=== PATIENT | female | born 1950 | race African-American/Black ===

== ENCOUNTER 2020-01-29 16:36 | Inpatient (IN) | payer MEDICARE, MEDICAID, SELFPAY ==
[2020-01-29] VITALS (8 sets, daily range): BP systolic 168–190; BP diastolic 79–94; PULSE 54–84; RESP 16–28; TEMP 36.1–36.4; O2SAT 95–100
--- NOTE | ~2020-01-29 | CT_ITS ---
EXAMINATION: CT abdomen pelvis w con DATE: 01/29/2020 17:27 INDICATION: Lower abdominal pain TECHNIQUE: Computed tomography (CT) of the abdomen and pelvis was performed with 100 mL Omnipaque-350 intravenous contrast. Automated exposure control and iterative reconstruction technique were employe d. The dose-length product was 929.39 mGy-cm. COMPARISON: None FINDINGS: Mild atelectasis at the lung bases suggesting expiratory phase of imaging. Moderate cardiomegaly. No pericardial or pleural effusion. Liver, gallbladder, spleen, pancreas and bilateral adrenal glands an d kidneys are normal. Normal appendix. There are a few mildly dilated loops of small bowel in the yuridia tral pelvis measuring up to 3.7 cm in maximal diameter. Pseudofeces sign at a transition point in the central lower abdomen best appreciated on axial series 3, image 109. Colon is unremarkable. Bladder is normal. The uterus is not identified and has likely been surgically resected. Small amount of like ly reactive free fluid in the lower abdomen and pelvis. No abscess or free intraperitoneal gas. No pa thologically enlarged abdominal or pelvic lymphadenopathy. Mild lumbar spondylosis including mild dis c height loss and 3-4 mm anterolisthesis L4 on L5 with severe associated bilateral facet osteoarthrit is. 4.4 x 2.3 x 3.4 cm subcutaneous lipoma overlying the intercostal space between the lateral right 10th and 11th ribs. IMPRESSION: 1. Mild dilation of a few loops of small bowel with relative transition point in the pelvis consisten t with likely early or partial small bowel obstruction. Reviewed, dictated and finalized at location A. [facility] IMPRESSION: 1. Mild dilation of a few loops of small bowel with relative transition point i n the pelvis consistent with likely early or partial small bowel obstruction.
--- NOTE | ~2020-01-29 | XR_ITS ---
EXAMINATION: XR abdomen NG/feed tube insert DATE: 01/29/2020 18:49 INDICATION: Nasogastric tube placement TECHNIQUE: A supine view of the abdomen and lower chest was obtained for evaluation of feeding tube placement. COMPARISON: CT abdomen and pelvis dated 01/29/2020 FINDINGS: Nasogastric tube tip in proximal side port in the body of the stomach. No dilated loops of bowel in t he visualized abdomen. The pelvis is excluded from the [id number]. Moderate cardiomegaly. Median s ternotomy wires and mediastinal surgical clips are seen, likely from prior coronary artery bypass gra fting. Mild bibasilar atelectasis. Mild lumbar dextrocurvature. IMPRESSION: 1. Nasogastric tube in the stomach. 2. Cardiomegaly. Reviewed, dictated and finalized at location A. NE DENTIST
--- NOTE | ~2020-01-29 | XR_ITS ---
EXAMINATION: XR abdomen obstructive series DATE: 01/30/2020 05:45 INDICATION: Small bowel obstruction TECHNIQUE: Frontal supine and upright views of the abdomen were obtained. COMPARISON: 01/29/2020 FINDINGS: Nasogastric tube tip in the body of the stomach with proximal side-port at the gastroesophageal junct ion. Small amount of gas seen scattered throughout the transverse colon. No dilated loops of gas-fill ed bowel in the visualized mid to upper abdomen. Mild bibasilar atelectasis. Cardiomegaly. Median zuhair rnotomy wires and mediastinal surgical clips are seen, likely from prior coronary artery bypass graft ing. IMPRESSION: 1. Nasogastric tube in stomach. 2. Cardiomegaly. Reviewed, dictated and finalized at location A. ATURE SET CONSTRUCTOR
[2020-01-29 16:55] LABS: Basophils Percent Auto 0.6 % (0.2-1.2); Eosinophils Absolute Auto 0.2 K/mm3 (0-0.3); Eosinophils Percent Auto 2.6 % (0-4.4); Hematocrit 39.3 % (37.0-47.0); Hemoglobin 11.7 g/dL (12.0-15.0); Immature Granulocyte Absolute 0.01 K/mm3 (0.00-0.031); Immature Granulocyte Percent A 0.1 % (0-0.5); Lymphocytes Absolute Auto 2.06 K/mm3 (0.9-3.2); Lymphocytes Percent Auto 29.2 % (18.3-44.2); Mean Corpuscular HGB Conc 29.8 g/dl (32-36); Mean Corpuscular Hemoglobin 24.6 pg (26-34); Mean Corpuscular Volume 82.7 fl (80-100); Mean Platelet Volume 11.1 fl (7.4-10.4); Monocytes Absolute Auto 0.8 K/mm3 (0.1-0.6); Monocytes Percent Auto 10.6 % (2.6-8.5); Neutrophils Percent Auto 56.9 % (45.5-73.1); Platelet Count Result 261 k/mm3 (150-375); Red Blood Count 4.75 M/mm3 (4.2-5.4); Red Cell Distribution Width 16.1 % (11.5-14.5); White Blood Count 7.1 K/mm3 (4.5-10.0)
[2020-01-29 17:06] LABS: Alanine Aminotransferase 16 U/L (4-35); Albumin Level 3.9 g/dL (3.5-5.1); Alkaline Phosphatase 116 U/L (38-126); Anion Gap 4 mmol/L (8-16); Aspartate Amino Transferase 28 U/L (14-36); Bilirubin,Total 0.4 mg/dL (0.2-1.3); Blood Urea Nitrogen 13 mg/dL (7-17); Carbon Dioxide 31 mmol/L (22-30); Chloride 108 mmol/L (98-107); Estimated CRCL calculation 56 ml/min; Estimated Glomerular Filt Rate > 60; Glucose 102 mg/dL (65-105); Lipase 256 U/L (23-300); Potassium 3.6 mmol/L (3.4-5.0); Sodium 143 mmol/L (137-145)
[2020-01-29] MEDS: PANTOPRAZOLE SODIUM IV 40 MG VIAL IV PUSH (17:07)
[2020-01-29] MEDS: SODIUM CHLORIDE 0.9% IV 500 ML 999 ML IV CONT (17:08)
[2020-01-29] MEDS: ONDANSETRON INJ 4 MG/2 ML VIAL IV PUSH ×2 (17:08→18:46)
--- NOTE | 2020-01-29 17:21 | PC.NURSE ---
Pt to CT.
--- NOTE | 2020-01-29 17:28 | ED.GENADULT ---
HPI - General Adult General Chief complaint: Abdominal Pain <ASIF Bailey Last Filed: 01/29/20 20:12> Stated complaint: abd pain <ASIF Bailey Last Filed: 01/29/20 20:12> Time Seen by Provider: 01/29/20 16:54 <ASIF Bailey Last Filed: 01/29/20 20:12> Source: patient and family <ASIF Bailey Last Filed: 01/29/20 20:12> Mode of arrival: ambulatory <ASIF Bailey Last Filed: 01/29/20 20:12> Limitations: no limitations <ASIF Bailey Last Filed: 01/29/20 20:12> History of Present Illness HPI narrative: Patient is a 70-year-old female who presents to emergency department for evaluation of intermittent cramping abdominal pain patient notes that the pain seems to began after eating a [employer] today and has since a crampy belly pain that is sharp in nature intermittent and is coming and going she has not taken anything for her symptoms and denies similar occurrence in the past patient denies any fever chills nausea vomiting <ASIF Bailey Last Filed: 01/29/20 20:12> Related Data Home medications: Home Medications Medication Instructions Recorded Confirmed atorvastatin PO 01/29/20 furosemide PO 01/29/20 isosorbide mononitrate mg PO 01/29/20 lisinopril PO 01/29/20 pantoprazole PO 01/29/20 rivaroxaban [Xarelto] mg PO 01/29/20 tramadol mg 01/29/20 <ASIF Bailey Last Filed: 01/29/20 20:12> Allergies/adverse reactions: Allergies Allergy/AdvReac Type Severity Reaction Status Date / Time No Known Allergies Allergy Verified 01/29/20 16:41 <ASIF Bailey Last Filed: 01/29/20 20:12> Review of Systems Review of Systems: All systems reviewed & are unremarkable except as noted in HPI and below <ASIF Bailey Last Filed: 01/29/20 20:12> All systems reviewed & are unremarkable except as noted in HPI and below <Bertin Hill MD - Last Filed: 01/29/20 19:27> Constitutional: Constitutional: Denies body ache(s), Denies chills, Denies excessive sweating, Denies fatigue, Denies fever(s), Denies headache(s), Denies lethargy, Denies malaise, Denies weakness and Denies weight loss <Bertin Hill MD - Last Filed: 01/29/20 19:27> Eyes: Eyes: Denies blurry vision, Denies change in vision and Denies loss of vision <Bertin Hill MD - Last Filed: 01/29/20 19:27> ENT: Denies dizziness, Denies ear discharge, Denies headache(s), Denies lip swelling, Denies epistaxis, Denies nasal congestion, Denies neck pain, Denies throat swelling and Denies tongue swelling <Bertin Hill MD - Last Filed: 01/29/20 19:27> Cardiovascular: Cardiovascular: Denies chest pain, Denies chest pain at rest, Denies chest pain with activity, Denies diaphoresis, Denies rapid heart rate, Denies edema, Denies irregular heart rhythm, Denies lightheadedness, Denies palpitations, Denies dyspnea and Denies dyspnea on exertion <Bertin Hill MD - Last Filed: 01/29/20 19:27> Respiratory: Respiratory: Denies chest congestion, Denies cough, Denies hemoptysis, Denies dyspnea and Denies dyspnea on exertion <Bertin Hill MD - Last Filed: 01/29/20 19:27> Gastrointestinal: Gastrointestinal: Denies melena, Denies hematochezia, Denies diarrhea, Denies nausea, Denies vomiting and Denies hematemesis <Bertin Hill MD - Last Filed: 01/29/20 19:27> Musculoskeletal: Musculoskeletal: Denies abnormal gait, Denies deformity, Denies joint swelling, Denies limited range of motion, Denies neck pain and Denies numbness <Bertin Hill MD - Last Filed: 01/29/20 19:27> Neurologic: Denies Abnormal speech present, Denies abnormal gait, Denies confusion, Denies dizziness, Denies headache(s), Denies focal weakness, Denies loss of vision, Denies numbness, Denies Other visual disturbances, Denies Sensory deficit (Neuro) and Denies weakness <Bertin Hill MD - Last Filed: 01/29/20 19:27> Psych
[2020-01-29 18:39] LABS: Add Urine Microscopic? YES; Appearance Urine Clear (Clear); Bilirubin Urine Negative (Negative); Blood Urine Negative (Negative); Color Urine Yellow (Yellow); Glucose Urine UA Negative (Negative); Ketones Urine Negative (Negative); Leukocyte Esterase Ur Negative LEU/UL (Negative); Mucus Urine Rare /lpf; Nitrate Urine Negative (Negative); Protein Urine 1+ mg/dL (Negative); RBC Urine 0-2 /hpf (0-2); Squamous Epithelial Cell Urine Occasional /hpf (Few); Urobilinogen Urine Negative mg/dL (<2.0); WBC Urine 0-3 /hpf
--- NOTE | 2020-01-29 18:42 | PC.NURSE ---
Xray at bedside for NGT verification.
[2020-01-29 18:44] LABS: Specific Grav Ur 1.044 (1.001-1.035)
[2020-01-29] MEDS: LORazepam INJ (*CRX) 2 MG/ML VIAL 0.5 MG IV PUSH (18:47)
--- NOTE | 2020-01-29 18:54 | PC.NURSE ---
NGT placement verified by WESLY Gonzalez
--- NOTE | 2020-01-29 19:19 | PC.NURSE ---
Report given to VALERIANO Barrientos.
[2020-01-29] MEDS: LACTATED RINGERS 1,000 ML 125 ML IV CONT (23:47)
--- NOTE | 2020-01-29 23:51 | ADMGEN ---
This patient, Maria Guadalupe Jerez, was admitted to Medical Room 250-01. Patient/family oriented to hospital policies and general routines including ID bracelet, bed and alarms, visiting hours, pain management, procedures, bathroom and other care routines, personal items, smoking policy, room service/diet, and visiting hours. Information on how to activate the Rapid Response Team has been discussed. Patient/Family are encouraged to report perceived risks to care and to ask questions if they do not understand what they are told or what they should do.
[2020-01-30] VITALS: BP 168/79; PULSE 84; RESP 20; TEMP 36.1; O2SAT 100
[2020-01-30 04:00] VITALS: BP 151/83; PULSE 69; RESP 20; TEMP 36.1; O2SAT 100
[2020-01-30 05:41] LABS: Basophils Percent Auto 0.4 % (0.2-1.2); Eosinophils Absolute Auto 0.1 K/mm3 (0-0.3); Eosinophils Percent Auto 1.9 % (0-4.4); Hematocrit 38.3 % (37.0-47.0); Hemoglobin 11.7 g/dL (12.0-15.0); Immature Granulocyte Absolute 0.02 K/mm3 (0.00-0.031); Immature Granulocyte Percent A 0.3 % (0-0.5); Lymphocytes Absolute Auto 1.82 K/mm3 (0.9-3.2); Lymphocytes Percent Auto 26.4 % (18.3-44.2); Mean Corpuscular HGB Conc 30.5 g/dl (32-36); Mean Corpuscular Hemoglobin 24.4 pg (26-34); Mean Corpuscular Volume 79.8 fl (80-100); Mean Platelet Volume 11.5 fl (7.4-10.4); Monocytes Absolute Auto 0.8 K/mm3 (0.1-0.6); Monocytes Percent Auto 11.2 % (2.6-8.5); Neutrophils Absolute Auto 4.1 K/mm3 (1.3-6.7); Neutrophils Percent Auto 59.8 % (45.5-73.1); Platelet Count Result 261 k/mm3 (150-375); Red Cell Distribution Width 15.9 % (11.5-14.5); White Blood Count 6.9 K/mm3 (4.5-10.0)
[2020-01-30 05:54] LABS: Anion Gap 8 mmol/L (8-16); Blood Urea Nitrogen 10 mg/dL (7-17); Calcium 8.8 mg/dL (8.4-10.2); Carbon Dioxide 25 mmol/L (22-30); Chloride 107 mmol/L (98-107); Estimated CRCL calculation 62 ml/min; Estimated Glomerular Filt Rate > 60; Glucose 96 mg/dL (65-105); Potassium 3.5 mmol/L (3.4-5.0); Sodium 140 mmol/L (137-145)
[2020-01-30] MEDS: LACTATED RINGERS 1,000 ML 100 ML IV CONT (07:50)
[2020-01-30] MEDS: PANTOPRAZOLE SODIUM IV 40 MG VIAL IV PUSH (09:15)
--- NOTE | 2020-01-30 09:15 | PM.IMHP ---
H&P: HPI History of Present Illness Date/Time: 01/30/20 09:15 Chief complaint: Abdominal pain and nausea Narrative: Maria Guadalupe Jerez is a 70 year old female with history of CAD (s/p CABG 2002), perforated peptic ulcer (s/p repair in 2001), HTN, HLD, and a. fib (on alf a/c) who presented to the ER with complaints of abdominal pain and nausea that started yesterday. Patient states she was in her usual state of health when shortly after eating [employer], she began to develop sharp, intermittent abdominal pain that was midline from epigastric to suprapubic. She had associated severe nausea but did not vomit. She states her pain did not radiate. She thought a laxative would help so she decided to take lactulose yesterday but notes it did not take effect until this morning and confirms that she had two liquid bowel movements; nonbloody/non-melenic. While in the ED, CT abd/pelvis showed mild dilation of a few loops of small bowel with relative transition point in the pelvis consistent with likely early or partial small bowel obstruction. NGT was placed in the ED and was placed on NPO diet. General Surgery was consulted from the ED. Patient admitted under this setting. This morning, patient's main complaint is a sore throat from the NGT. She notes that her nausea and abdominal resolved after NGT was placed. She has no other complaints at this moment. Denies f/c/s, headaches, dizziness, lightheadedness, changes in v/h, cp/palpitations, sob/cough, dysuria, hematuria, cloudy urine, calf pain/swelling. Review of Systems Review of Systems: All systems reviewed & are unremarkable except as noted in HPI and below [facility] Past Medical History Medical History Arthritis Atrial fibrillation Chronic anticoagulation Coronary artery disease Hyperlipidemia Hypertension Perforated peptic ulcer Surgical History Surgical History H/O: hysterectomy History of abdominal surgery Perforated peptic ulcer repair in 2001. Incision from sternum to pubis History of coronary artery bypass graft History of lumpectomy History of neck surgery History of right inguinal hernia repair Family History Family History Father Colon cancer Mother Cerebrovascular accident Hypertension Social History Social History (Updated 01/30/20 @ 09:33 by Luis Angel Robins PA-C) Social History: Patient lives at home alone but has her boyfriend come in to check on her frequently. She wishes her son, Shant to be her surrogate MDM. She wishes to be a Full [employer]. Her PCP is Dr. Finley from [facility] Smoking status: Never smoker Alcohol intake: never Substance use: never Gender identity (if verbalized by the patient): Female Spiritual care concerns: No Meds Home Medications and Allergies Home Medications Medication Instructions Recorded Confirmed Type atorvastatin 20 mg PO HS 01/29/20 01/30/20 History furosemide 40 mg PO DAILY 01/29/20 01/30/20 History isosorbide mononitrate 60 mg PO BID 01/29/20 01/30/20 History lisinopril 10 mg PO DAILY 01/29/20 01/30/20 History pantoprazole 40 mg PO DAILY 01/29/20 01/30/20 History rivaroxaban [Xarelto] 20 mg PO DAILY 01/29/20 01/30/20 History tramadol 50 mg PO BID PRN 01/29/20 01/30/20 History tizanidine 4 mg PO BID PRN 01/30/20 01/30/20 History Allergies Allergy/AdvReac Type Severity Reaction Status Date / Time No Known Allergies Allergy Verified 01/30/20 06:45 Vital Signs Initial Vital Signs Temp Pulse Resp Pulse Ox 97.6 F 71 18 100 01/29/20 16:38 01/29/20 16:38 01/29/20 16:38 01/29/20 16:38 Last Vital Signs Temp 97 F L 01/30/20 04:00 Pulse 69 01/30/20 04:00 Resp 20 01/30/20 04:00 BP 151/83 H 01/30/20 04:00 Pulse Ox 100 01/30/20 04:00 Exam Narrative: Exam Narrative: Patient lying in semi-logan
[2020-01-30 10:00] VITALS: BP 145/92; PULSE 71; RESP 14; TEMP 36.3; O2SAT 100
--- NOTE | 2020-01-30 11:44 | PM.CNGS ---
Assessment and Plan Assessment and plan (1) Small bowel obstruction: Code(s): K56.609 - Unspecified intestinal obstruction, unspecified as to partial versus complete obstruction Status: Acute Assessment and Plan: CT scan suggests partial small bowel obstruction. I discussed CT findings with the patient. She has a significant history of abdominal surgeries. This is likely due to adhesions. The patient is already clinically improving and now moving her bowels. Her abdominal exam is benign. It seems that this has already started to resolve prior to my exam. NG tube in place and patient NPO. We will try to remove the NG tube and start advancing her diet. Continue with conservative management. No indication for surgery at this time. Thank you for allowing us to see the patient in consultation. We will continue to follow along. (2) History of abdominal surgery: Code(s): Z98.890 - Other specified postprocedural states Status: Inactive (3) Atrial fibrillation: Code(s): I48.91 - Unspecified atrial fibrillation Status: Acute (4) Chronic anticoagulation: Code(s): Z79.01 - care home (current) use of anticoagulants Status: Acute Assessment and Plan: Xarelto on hold. Okay to resume once tolerating a substantial diet. (5) Hypertension: Code(s): I10 - Essential (primary) hypertension Status: Acute (6) Coronary artery disease: Code(s): I25.10 - Atherosclerotic heart disease of [place] coronary artery without angina pectoris Status: Acute Additional Plan Discussed the patient's case and plan of care with Dr. Urena. History of Present Illness Consult details Consult date: 01/30/20 Reason for consult: other (Partial small bowel obstruction) Requesting physician: Sajan Montana PA-C Narrative: This is a 70-year-old female with a history of coronary artery disease, atrial fibrillation on chronic anticoagulation, hypertension, and history of peptic ulcer disease with peptic ulcer perforation with subsequent exploratory laparotomy. She presented to the emergency department yesterday with complaints of abdominal pain, bloating and nausea. She reports having a sudden onset of severe cramping abdominal pain in the afternoon. She reports associated nausea and bloating, but no vomiting. She had a bowel movement earlier that morning with breakfast, but tried to take lactulose after the pain onset, which gave no relief. The pain was unrelenting, therefore she went to [facility] ER. Due to the length of the wait for evaluation, she decided to go to [place] ER for evaluation. CT scan of the abdomen and pelvis showed mild dilation of a few loops of small bowel with relative transition point in the pelvis consistent with likely early or partial small bowel obstruction. The patient was admitted and our service was consulted from the emergency department provider for the partial small bowel obstruction. NG tube was placed and put to low intermittent suction. KUB this morning confirmed placement of the NG tube and showed no dilated loops of small bowel. The patient is now being seen on the medical floor. She denies any current abdominal pain, nausea, or vomiting. She reports flatus this morning and 2 BMs since admission. No other complaints at this time. Review of Systems Constitutional: Constitutional: Reports as per HPI, Denies chills, Denies excessive sweating, Denies fatigue, Denies fever(s), Denies headache(s) and Denies weakness Eyes: Eyes: Denies change in vision and Denies loss of vision ENT: Reports Normal hearing present, Denies dizziness and Denies headache(s) Cardiovascular: Cardiovascular: Denies chest pain, Denies syncope, Denies leg edema, Denies lightheadedness, Denies radiating jaw, neck or arm pain and Denies dyspnea Respiratory: Respiratory: Denies cough, Denies dyspnea and Denies wheezing Gastrointestinal: Gastrointestinal: Reports as per HPI, Reports a
[2020-01-30] MEDS: hydrALAZINE HCL 20 MG/ML VIAL 10 MG IV PUSH (11:45)
[2020-01-30 12:00] VITALS: BP 124/76; PULSE 80; RESP 14; TEMP 36.3; O2SAT 100
[2020-01-30 18:00] VITALS: BP 120/75; PULSE 71; RESP 14; TEMP 36.2; O2SAT 100
[2020-01-30 22:00] VITALS: BP 147/89; PULSE 85; RESP 20; TEMP 36.8; O2SAT 99
[2020-01-30] MEDS: LACTATED RINGERS 1,000 ML 50 ML IV CONT (22:07)
[2020-01-30] MEDS: traMADol HCL (*CRX) 50 MG TABLET PO (22:08)
[2020-01-30] MEDS: ISOSORBIDE MONONITRATE 60 MG TAB.ER.24H PO (22:12)
[2020-01-30] MEDS: ATORVASTATIN 20 MG TABLET PO (22:13)
[2020-01-31 02:00] VITALS: BP 142/88; PULSE 85; RESP 21; TEMP 36.2; O2SAT 100
[2020-01-31 05:38] LABS: Hematocrit 34.5 % (37.0-47.0); Hemoglobin 10.7 g/dL (12.0-15.0); Mean Corpuscular Volume 80.6 fl (80-100); Mean Platelet Volume 11.6 fl (7.4-10.4); Platelet Count Result 239 k/mm3 (150-375); Red Blood Count 4.28 M/mm3 (4.2-5.4); Red Cell Distribution Width 15.9 % (11.5-14.5); White Blood Count 6.3 K/mm3 (4.5-10.0)
[2020-01-31 05:57] LABS: Anion Gap 4 mmol/L (8-16); Blood Urea Nitrogen 8 mg/dL (7-17); Calcium 8.3 mg/dL (8.4-10.2); Carbon Dioxide 31 mmol/L (22-30); Chloride 103 mmol/L (98-107); Estimated CRCL calculation 62 ml/min; Estimated Glomerular Filt Rate > 60; Glucose 90 mg/dL (65-105); Magnesium 1.7 mg/dL (1.6-2.3); Sodium 138 mmol/L (137-145)
[2020-01-31 06:00] VITALS: BP 148/70; PULSE 94; RESP 21; TEMP 36.7; O2SAT 100
[2020-01-31] MEDS: traMADol HCL (*CRX) 50 MG TABLET PO (07:40)
[2020-01-31] MEDS: FUROSEMIDE 40 MG TABLET PO (07:41)
[2020-01-31] MEDS: ISOSORBIDE MONONITRATE 60 MG TAB.ER.24H PO (07:41)
[2020-01-31] MEDS: PANTOPRAZOLE 40 MG TABLET PO (07:41)
[2020-01-31 10:00] VITALS: BP 152/77; PULSE 76; RESP 16; TEMP 36.7; O2SAT 99
--- NOTE | 2020-01-31 10:52 | PM.DS ---
DS: Admitting Diagnosis Admitting Diagnosis Admitting Diagnosis: Abdominal pain and nausea DS: Discharge Diagnosis Discharge Diagnosis (1) Small bowel obstruction: Code(s): K56.609 - Unspecified intestinal obstruction, unspecified as to partial versus complete obstruction Status: Acute Assessment and Plan: CT findings suggestive of mild partial SBO. S/S consistent as well. Appears to be resolving as symptoms have improved and XR this morning yesterday showed no signs of dilated loops of bowel and patient states she had return of bowel function with 2 BMs yesterday. General Surgery consulted from the ED and appreciate input - ok'd patient discharge to home this afternoon. NGT removed earlier, advancing diet as tolerated. Monitor closely Resumed home meds as tolerating diet (2) Atrial fibrillation: Code(s): I48.91 - Unspecified atrial fibrillation Status: Acute Assessment and Plan: Patient is rate controlled , HR 80s and regular to auscultation. on Xarelto chronically. resuming at discharge. Normal rate today. Resumed Xarelto as diet intake has returned to regular diet and consistency (3) Chronic anticoagulation: Code(s): Z79.01 - senior care (current) use of anticoagulants Status: Acute Assessment and Plan: On Xarelto for A. Fib. No evidence of acute blood loss Resumed as tolerating a substantial diet. (4) Coronary artery disease: Code(s): I25.10 - Atherosclerotic heart disease of [place] coronary artery without angina pectoris Status: Acute Assessment and Plan: No acute issues at this moment Resume home meds when appropriate (5) Hypertension: Code(s): I10 - Essential (primary) hypertension Status: Acute Assessment and Plan: BP stable today. BP 140s sys this morning PRN hydralazine with parameters ordered while NPO Resumed home medications at discharge. (6) Hyperlipidemia: Code(s): E78.5 - Hyperlipidemia, unspecified Status: Inactive Assessment and Plan: LFTs WNL Resumed atorvastatin at discharge. (7) History of abdominal surgery: Code(s): Z98.890 - Other specified postprocedural states Status: Inactive Assessment and Plan: significant history of abdominal surgeries. SBO is likely due to adhesions. Continue with conservative management. No indication for surgery at this time. DS: Summary Time Spent with Patient Time attestation: Total time spent providing and/or coordinating discharge services:90 minutes Exam Narrative: Exam Narrative: Patient lying in bed at time of visit. Const: General: cooperative, healthy appearing, comfortable, no acute distress, well developed, alert and awake; No confusion Nutritional Appearance: well nourished and overweight Orientation/consciousness: oriented to person, oriented to place, oriented to time, patient oriented x3 and No confusion Limitations: no limitations HENMT: Head: normal to inspection, normocephalic and atraumatic Ears: hearing grossly normal bilaterally, external ears normal, TM normal on the right and TM normal on the left General nose exam: Normal external nose present, Normal nares present (NGT noted in right nostril) and No nasal discharge present Face and sinus: normal facial exam and face symmetric Mouth: Yes Normal oral and palatal mucosa present, Yes lip normal, Yes tongue normal, Yes oropharynx normal and Yes moist mucous membranes Throat: posterior oropharynx normal, tonsils normal and uvula midline Eyes: General: appearance normal, both eyes and all related structures Sclera: sclerae normal Pupils: Equal, round and reactive pupils present EOM: EOMs intact bilaterally Neck: Neck: normal visual inspection, full ROM, no lymphadenopathy, no meningeal signs, trachea midline and supple Chest: Chest palpation & inspection: normal inspection of the chest Resp: Effort & Inspection: normal respiratory ef
[2020-01-31] MEDS: POTASSIUM CHLORIDE 20 MEQ TABLET PO (10:59)
[2020-01-31] MEDS: POTASSIUM CHLORIDE 20 MEQ TABLET.ER PO (11:00)
--- NOTE | 2020-01-31 11:30 | PM.PNGS ---
Progress Note: A&P Assessment and Plan (1) Small bowel obstruction: Code(s): K56.609 - Unspecified intestinal obstruction, unspecified as to partial versus complete obstruction Status: Acute Assessment and Plan: doing well, +bowel fxn, ADAT, no acute surgical issues, will sign off, call c ?s, issues Subjective Subjective Date/Time Seen: 01/31/20 11:30 doing well, roxana clears, multiple BMs Review of Systems Constitutional: Constitutional: Denies anorexia, Denies chills, Denies fatigue and Denies fever(s) Cardiovascular: Cardiovascular: Reports no additional cardiovascular complaints Respiratory: Respiratory: Reports no additional respiratory complaints Gastrointestinal: Gastrointestinal: Reports no additional gastrointestinal complaints Exam Const: General: cooperative, comfortable and no acute distress Resp: Effort & Inspection: normal respiratory effort Auscultation: clear to auscultation bilaterally Cardio: Rate: regular rate Rhythm: regular rhythm GI: Inspection: normal to inspection and non-distended GI Palp: Yes Soft to palpation and No Tenderness to palpation present (GI) Other: soft, sl dist, NT Objective Data Vital Signs Vital Signs: Vital Signs - 24 hr 01/30/20 12:00 01/30/20 18:00 01/30/20 22:00 Temperature 36.3 C L 36.2 C L 36.8 C Pulse Rate 80 71 85 Respiratory Rate 14 14 20 Blood Pressure 124/76 120/75 147/89 H Pulse Oximetry 100 100 99 01/31/20 02:00 01/31/20 06:00 01/31/20 10:00 Temperature 36.2 C L 36.7 C 36.7 C Pulse Rate 85 94 76 Respiratory Rate 21 H 21 H 16 Blood Pressure 142/88 H 148/70 H 152/77 H Pulse Oximetry 100 100 99 Intake/Output Intake/Output: Intake & Output 01/28/20 01/29/20 01/30/20 01/31/20 23:59 23:59 23:59 23:59 Intake Total 600 2770 1590 Output Total 1000 Balance 600 2770 590 Meds/Results Medications: Active Medications Generic Name Dose Route Start Last Admin Trade Name Freq PRN Reason Stop Dose Admin Acetaminophen 1,000 mg 01/31/20 10:36 Acetaminophen 500 Mg Tablet PO Q6H PRN Pain or Fever Atorvastatin Calcium 20 mg 01/30/20 21:00 01/30/20 22:13 Atorvastatin 20 Mg Tablet PO 20 mg HS BETH Administration Docusate Sodium 100 mg 01/31/20 21:00 Docusate Sodium 100 Mg Capsule PO Q12HR BETH Furosemide 40 mg 01/31/20 09:00 01/31/20 07:41 Furosemide 40 Mg Tablet PO 40 mg DAILY BETH Administration Hydralazine HCl 10 mg 01/30/20 07:16 01/30/20 11:45 Hydralazine Hcl 20 Mg/Ml Vial IV PUSH 10 mg Q8H PRN Administration Blood Pressure - High Isosorbide Mononitrate 60 mg 01/30/20 21:00 01/31/20 07:41 Isosorbide Mononitrate 60 Mg Tab.Er.24h PO 60 mg Q12HR BETH Administration Lisinopril 10 mg 01/31/20 09:00 01/31/20 08:06 Lisinopril 10 Mg Tablet PO Not Given DAILY BETH Ondansetron HCl 4 mg 01/29/20 20:12 Ondansetron Inj 4 Mg/2 Ml Vial IV PUSH Q4H PRN Nausea Pantoprazole Sodium 40 mg 01/31/20 09:00 01/31/20 07:41 Pantoprazole 40 Mg Tablet PO 40 mg DAILY [facility] Administration Potassium Chloride 20 meq 01/31/20 10:40 01/31/20 11:00 Potassium Chloride 20 Meq Tablet.Er PO 20 meq BID BETH Administration Psyllium Hydrophilic Mucilloid 1 packet 02/01/20 09:00 Psyllium Powder Packet PO QAM [facility] Rivaroxaban 20 mg 02/01/20 09:00 Rivaroxaban 20 Mg Tablet PO DAILY [facility] Tizanidine HCl 4 mg 01/30/20 15:49 Tizanidine Hcl 4 Mg Tablet PO BID PRN Muscle Spasm Tramadol HCl 50 mg 01/30/20 15:49 01/31/20 07:40 Tramadol Hcl (*Crx) 50 Mg Tablet PO 50 mg BID PRN Administration PAIN RATED 4-6 Radiology Results: ITS Impressions Abdomen/Pelvis CT 01/29/20 17:31 IMPRESSION: 1. Mild dilation of a few loops of small bowel with relative transition point in the pelvis consistent with likely early or partial small bowel obstruction. Abdomen X-Ray 01/30/20 07:50 IMPRESSI
[2020-01-31 14:00] VITALS: BP 146/73; PULSE 68; RESP 16; TEMP 36.6; O2SAT 99
[2020-01-31 14:48] LABS: Anion Gap 6 mmol/L (8-16); Blood Urea Nitrogen 9 mg/dL (7-17); Calcium 8.3 mg/dL (8.4-10.2); Carbon Dioxide 30 mmol/L (22-30); Chloride 104 mmol/L (98-107); Estimated CRCL calculation 51 ml/min; Estimated Glomerular Filt Rate > 60; Glucose 82 mg/dL (65-105); Magnesium 1.7 mg/dL (1.6-2.3); Potassium 3.5 mmol/L (3.4-5.0); Sodium 140 mmol/L (137-145)
== END 2020-01-31 16:25 | disposition home or self-care (01) | DRG 390 ==
LOC: ANHED 20:17 → ANH3MEDSUR 20:43 → ANH2MED 21:43
PROVIDERS: Emergency Medicine Emergency Medical Services; Physician Assistant; Admitting Provider Family Medicine; Emergency Provider Emergency Medicine; PCP Internal Medicine; Visit Provider Nurse Practitioner
DX: K56.50 Intestinal adhesions [bands], unspecified as to partial versus complete obstruction (principal); E78.5 Hyperlipidemia, unspecified; I48.91 Unspecified atrial fibrillation; I25.10 Atherosclerotic heart disease of native coronary artery without angina pectoris; I10 Essential (primary) hypertension; Z79.01 Long term (current) use of anticoagulants; Z87.11 Personal history of peptic ulcer disease; Z98.890 Other specified postprocedural states
CPT/HCPCS: 36415; 74019; 74177; 80048; 80053; 81001; 83690; 83735; 84443; 85025; 85027; 96361; 96365; 96375; 96376; 97110; 97161; 97165; 99285; A9270; C9113; G0378; J0131; J0360; J2060; J2405; J7040; J7120; Q9967

== ENCOUNTER 2020-11-12 03:38 | Emergency (ER) | payer MEDICARE, MEDICAID, SELFPAY ==
[2020-11-12] VITALS (11 sets, daily range): BP systolic 157–201; BP diastolic 77–120; PULSE 74–108; RESP 14–21; TEMP 36.7; O2SAT 96–100
--- NOTE | ~2020-11-12 | XR_ITS ---
EXAMINATION: XR chest 1V portable DATE: 11/12/2020 04:43 INDICATION: Shortness of breath. COVID-19 positive on 11/05/20. TECHNIQUE: A single frontal view of the chest was obtained. COMPARISON: Chest CT 11/12/2020 FINDINGS: There are patchy airspace opacities in right mid and lower lung zones and left lower lung z one. No pleural effusion or pneumothorax. Cardiomegaly is noted. Median sternotomy wires and mediasti nal surgical clips are seen, likely from prior coronary artery bypass grafting. IMPRESSION: 1. Patchy airspace opacities in right mid and lower lung zones and left lower lung zone, consistent w ith COVID-19 pneumonia. 2. Cardiomegaly. Reviewed, dictated and finalized at location A. IMPRESSION: 1. Patchy airspace opacities in right mid and lower lung zones and left lower l stefano zone, consistent with COVID-19 pneumonia. 2. Cardiomegaly.
--- NOTE | ~2020-11-12 | CT_ITS ---
EXAMINATION: CTA chest PE protocol DATE: 11/12/2020 06:26 INDICATION: Shortness of breath. COVID-19 pneumonia. TECHNIQUE: Computed tomography angiography (CTA) of the chest was performed with 100 mL Omnipaque-350 intravenous contrast timed to evaluate the pulmonary arteries. Coronal maximum intensity projection 3D-reconstructions were created by the technologist. Automated exposure control and iterative reconst ruction technique were employed. The dose-length product was 657.76 mGy-cm. COMPARISON: CT abdomen and pelvis 01/29/2020, chest single view 11/12/2020 FINDINGS: There are patchy groundglass opacities and crazy paving in all lobes. There are patchy airs pace opacities in the lower lobes and right middle lobe. A calcified right lung nodule is consistent with old granulomatous disease. No pleural effusion. Cardiomegaly is noted. There are coronary artery calcifications. There are changes of coronary artery bypass grafting. No pericardial effusion. There is no pulmonary embolus. There is mild thoracic spondylosis. IMPRESSION: 1. No pulmonary embolus. Sensitivity is moderately decreased by motion artifact. 2. Diffuse lung disease with a lower lung predominance, consistent with COVID-19 pneumonia. 3. Cardiomegaly. Reviewed, dictated and finalized at location A. IMPRESSION: 1. No pulmonary embolus. Sensitivity is moderately decreased by motion artifact . 2. Diffuse lung disease with a lower lung predominance, consistent with COVID-1 9 pneumonia. 3. Cardiomegaly.
--- NOTE | 2020-11-12 04:23 | ECG_ITS ---
Measurements Intervals [place] Rate: 81 P: MT: 0 QRS: 9 QRSD: 102 T: -20 QT: 385 QTc: 449 Interpretive Statements ATRIAL FIBRILLATION DELAYED PRECORDIAL R/S TRANSITION BORDERLINE T WAVE ABNORMALITY- INFERIOR LEADS BASELINE ARTIFACT- V6 ABNORMAL ECG Electronically Signed On 11-12-2020 6:05:11 CDT by Graeme Pavon D.O.
--- NOTE | 2020-11-12 04:38 | ED.GENADULT ---
HPI - General Adult General Chief complaint: Unspecified Stated complaint: covid-19 positive, can't sleep Time Seen by Provider: 11/12/20 04:10 History of Present Illness HPI narrative: Patient is a 70-year-old female who presents the emergency department with chief complaint of shortness of breath. The patient reports she was diagnosed with COVID-19 on the 13th reports she has had symptoms for about a week patient states that tonight she was feeling short of breath as though she could not get a good deep breath and reports that she could not sleep. The patient states that she has had a cough that is been productive reports symptoms are not improved by anything nor they worsened by any thing the patient states she is not had any chest pain with this. Related Data Home Medications Medication Instructions Recorded Confirmed Xarelto 20 mg PO DAILY 01/29/20 01/30/20 atorvastatin 20 mg PO HS 01/29/20 01/30/20 furosemide 40 mg PO DAILY 01/29/20 01/30/20 isosorbide mononitrate 60 mg PO BID 01/29/20 01/30/20 lisinopril 10 mg PO HS 01/29/20 01/31/20 pantoprazole 40 mg PO DAILY 01/29/20 01/30/20 tramadol 50 mg PO BID PRN 01/29/20 01/30/20 tizanidine 4 mg PO BID PRN 01/30/20 01/30/20 potassium chloride 20 meq PO QAM AND QPM 01/31/20 01/31/20 Allergies Allergy/AdvReac Type Severity Reaction Status Date / Time No Known Allergies Allergy Verified 11/12/20 04:21 Review of Systems Review of Systems: A 10 system review of systems was completed on the patient and is negative except for what is stated in the HPI. Nursing and ancillary documentation was reviewed. [facility] Past Medical History Medical History Arthritis Atrial fibrillation Chronic anticoagulation Coronary artery disease Hyperlipidemia Hypertension Perforated peptic ulcer Surgical History Surgical History H/O: hysterectomy vaginal partial hysterectomy History of abdominal surgery Exploratory laparotomy for perforated peptic ulcer repair in 2001. History of coronary artery bypass graft History of lumpectomy History of neck surgery History of right inguinal hernia repair Family History Family History Father Colon cancer Mother Cerebrovascular accident Hypertension Social History Social History Social History: Patient lives at home alone but has her boyfriend comes in to check on her frequently. She wishes her son, Shant to be her surrogate MDM. She wishes to be a Full Code. Her PCP is Dr. Finley from [facility] Smoking status: Never smoker Alcohol intake: never Substance use: never Gender identity (if verbalized by the patient): Female Spiritual care concerns: No Exam Narrative: GENERAL: Well-appearing, well-nourished, and in no acute distress. HEAD: Normocephalic, atraumatic. EYES: PERRLA and EOMI. ENT: Nares clear, no rhinorrhea or epistaxis. Mucous membranes moist. NECK: Supple. CHEST: Clear to auscultation. No respiratory distress. HEART: Regular rate and rhythm. No murmur heard. Normal peripheral pulses. ABDOMEN: Soft, nontender, nondistended, normal active bowel sounds. EXTREMITIES: Normal range of motion. No edema. SKIN: Warm, dry, no rash. NEURO: No focal deficits. Alert and oriented x3. PSYCH: Normal mood and affect. Course Course Emergency Course: The patient had a mildly elevated troponin given her COVID-19 status plan was to admit the patient for observation. The patient states he has a court case coming up tomorrow and cannot stay in the hospital the patient has chosen to leave AGAINST MEDICAL ADVICE Vital Signs Vital signs: Vital Signs Temperature 36.7 C 11/12/20 03:44 Pulse Rate 108 H 11/12/20 03:44 Respiratory Rate 14 11/12/20 03:44 Blood Pressure
[2020-11-12] MEDS: ALBUTEROL SULFATE (*SP) INHALER 2 PUFF INHALATION (04:39)
[2020-11-12] MEDS: SODIUM CHLORIDE 0.9% IV 1,000 ML 999 ML IV CONT (04:43)
[2020-11-12] MEDS: ONDANSETRON INJ 4 MG/2 ML VIAL IV PUSH (04:43)
[2020-11-12 04:50] LABS: Hematocrit 41.5 % (37.0-47.0); Hemoglobin 12.7 g/dL (12.0-15.0); Immature Granulocyte Absolute 0.02 K/mm3 (0.00-0.031); Immature Granulocyte Percent A 0.6 % (0-0.5); Lymphocytes Absolute Auto 0.81 K/mm3 (0.9-3.2); Lymphocytes Percent Auto 22.6 % (18.3-44.2); Mean Corpuscular HGB Conc 30.6 g/dl (32-36); Mean Corpuscular Volume 81.5 fl (80-100); Mean Platelet Volume 11.9 fl (7.4-10.4); Monocytes Absolute Auto 0.4 K/mm3 (0.1-0.6); Monocytes Percent Auto 10.6 % (2.6-8.5); Neutrophils Absolute Auto 2.4 K/mm3 (1.3-6.7); Neutrophils Percent Auto 66.2 % (45.5-73.1); Platelet Count Result 162 k/mm3 (150-375); Red Blood Count 5.09 M/mm3 (4.2-5.4); Red Cell Distribution Width 15.9 % (11.5-14.5); White Blood Count 3.6 K/mm3 (4.5-10.0)
[2020-11-12 05:01] LABS: INR 1.3; Prothrombin Time 16.1 Seconds (11.1-14.7)
[2020-11-12 05:02] LABS: Partial Thromboplastin Time 42.2 SECONDS (22.3-36.8)
[2020-11-12 05:05] LABS: Alanine Aminotransferase 69 U/L (4-35); Alkaline Phosphatase 101 U/L (38-126); Anion Gap 10 mmol/L (8-16); Aspartate Amino Transferase 149 U/L (14-36); Bilirubin,Total 0.5 mg/dL (0.2-1.3); Blood Urea Nitrogen 6 mg/dL (7-17); Calcium 8.2 mg/dL (8.4-10.2); Carbon Dioxide 27 mmol/L (22-30); Chloride 100 mmol/L (98-107); Estimated CRCL calculation 64 ml/min; Estimated Glomerular Filt Rate > 60; Glucose 117 mg/dL (65-110); Potassium 3.8 mmol/L (3.4-5.0); Sodium 137 mmol/L (137-145)
[2020-11-12 05:19] LABS: NT Pro B Type Natriuretic Pept 1200 pg/mL (5-100)
--- NOTE | 2020-11-12 05:45 | PC.NURSE ---
Patient taken to CT.
--- NOTE | 2020-11-12 06:38 | PC.NURSE ---
Patient ambulated to the bathroom and back to her room with a steady gait. Patient states she is feeling much better.
== END 2020-11-12 07:20 | disposition left against medical advice (07) ==
PROVIDERS: Emergency Provider Emergency Medicine; PCP Internal Medicine
DX: U07.1 COVID-19 (principal); R79.89 Other specified abnormal findings of blood chemistry; I48.91 Unspecified atrial fibrillation; I25.10 Atherosclerotic heart disease of native coronary artery without angina pectoris; E78.5 Hyperlipidemia, unspecified; I10 Essential (primary) hypertension; M19.90 Unspecified osteoarthritis, unspecified site; Z79.01 Long term (current) use of anticoagulants; Z95.1 Presence of aortocoronary bypass graft; R94.31 Abnormal electrocardiogram [ECG] [EKG]
CPT/HCPCS: 36415; 71045; 71275; 80053; 83880; 84484; 85025; 85610; 85730; 93005; 96361; 96374; 99284; A9270; J2405; J7030; Q9967

== ENCOUNTER 2020-11-13 13:50 | Emergency (ER) | payer MEDICARE, MEDICAID, SELFPAY ==
--- NOTE | ~2020-11-13 | XR_ITS ---
EXAMINATION: XR chest 2V EXAM DATE: 11/13/2020 14:19 INDICATION: COVID positive. Cough. TECHNIQUE: Frontal and lateral projections of the chest obtained and reviewed. Comparison is made to prior examination from 11/12/2020. FINDINGS: There is cardiomegaly. Bilateral mid and lower lung zone ill-defined airspace disease, cou ld be COVID pneumonia given history. Other acute infectious process or edema can look identical. No p neumothorax or pleural effusion. Sternotomy wires are present without findings to suggest sternal deh iscence. Cervical fusion markers. There is no pneumothorax suspected. There are no pleural effusions. Accounting for differences in technique, there is no significant interval change. IMPRESSION: 1. Ill-defined bilateral infection or edema. 2. Cardiomegaly. Reviewed, dictated and finalized at location B.
[2020-11-13 13:54] VITALS: BP 174/98; PULSE 89; RESP 18; TEMP 37; O2SAT 99
--- NOTE | 2020-11-13 13:59 | ECG_ITS ---
Measurements Intervals [place] Rate: 80 P: FL: 0 QRS: 16 QRSD: 98 T: -15 QT: 380 QTc: 440 Interpretive Statements ATRIAL FIBRILLATION CANNOT RULE OUT SEPTAL INFARCT, AGE INDETERMINATE BORDERLINE T WAVE ABNORMALITY- INFERIOR LEADS BASELINE ARTIFACT- I, II, III, AVR, AVL, AVF, V1-V6 ABNORMAL ECG Electronically Signed On 11-13-2020 20:22:24 CDT by Graeme Pavon D.O.
[2020-11-13 18:30] VITALS: TEMP 38.4
[2020-11-13 18:36] VITALS: BP 160/92; PULSE 80; RESP 20; TEMP 37.8; O2SAT 95
[2020-11-13] MEDS: ALBUTEROL SULFATE (*SP) INHALER 2 PUFF INHALATION (18:58)
[2020-11-13 19:04] LABS: Hematocrit 41.4 % (37.0-47.0); Hemoglobin 12.6 g/dL (12.0-15.0); Immature Granulocyte Absolute 0.02 K/mm3 (0.00-0.031); Immature Granulocyte Percent A 0.5 % (0-0.5); Lymphocytes Absolute Auto 0.96 K/mm3 (0.9-3.2); Lymphocytes Percent Auto 24.3 % (18.3-44.2); Mean Corpuscular HGB Conc 30.4 g/dl (32-36); Mean Corpuscular Volume 82.3 fl (80-100); Mean Platelet Volume 11.7 fl (7.4-10.4); Monocytes Absolute Auto 0.4 K/mm3 (0.1-0.6); Monocytes Percent Auto 9.6 % (2.6-8.5); Neutrophils Absolute Auto 2.6 K/mm3 (1.3-6.7); Neutrophils Percent Auto 65.6 % (45.5-73.1); Platelet Count Result 172 k/mm3 (150-375); Red Blood Count 5.03 M/mm3 (4.2-5.4); Red Cell Distribution Width 15.9 % (11.5-14.5)
[2020-11-13] MEDS: BENZONATATE 100 MG CAPSULE 200 MG PO (19:17)
[2020-11-13 19:18] LABS: Anion Gap 10 mmol/L (8-16); Blood Urea Nitrogen 7 mg/dL (7-17); Calcium 8.2 mg/dL (8.4-10.2); Carbon Dioxide 27 mmol/L (22-30); Chloride 100 mmol/L (98-107); Estimated CRCL calculation 58 ml/min; Estimated Glomerular Filt Rate > 60; Glucose 84 mg/dL (65-110); Lactic Acid Reflex 0.9 mmol/L (0.7-2.1); Potassium 4.3 mmol/L (3.4-5.0); Sodium 137 mmol/L (137-145)
[2020-11-13] MEDS: SODIUM CHLORIDE 0.9% IV 1,000 ML 999 ML IV CONT (19:18)
[2020-11-13 19:40] LABS: NT Pro B Type Natriuretic Pept 2280 pg/mL (5-100); Troponin I 0.042 ng/mL (0.000-0.034)
[2020-11-13 19:41] LABS: Hypochromasia 1+ (NORMAL); Platelet Estimate Adequate (Adequate)
[2020-11-13 19:42] LABS: Anisocytosis 2+ (NORMAL)
--- NOTE | 2020-11-13 19:49 | ED.GENADULT ---
HPI - General Adult General Chief complaint: Recheck/Abnormal Lab/Rx Stated complaint: COVID/Pneumonia Time Seen by Provider: 11/13/20 18:27 History of Present Illness HPI narrative: Patient is a 70-year-old female presents the emergency department with chief complaint of Covid pneumonia. Patient was seen in the emergency department the other morning where she is a known Covid positive patient and has been having some shortness of breath. The patient was found to have a elevated troponin at that time and the plan was originally to admit the patient for observation. The patient at that time stated that she had a court case that she had to go to and did not want to stay in the hospital the patient signed out AGAINST MEDICAL ADVICE and went home the patient states she is continued to have shortness of breath and her symptoms have not improved and she did not make a court. The patient states that her primary care doctor spoke to her and recommended that she return to the emergency department for admission Related Data Home Medications Medication Instructions Recorded Confirmed Xarelto 20 mg PO DAILY 01/29/20 01/30/20 atorvastatin 20 mg PO HS 01/29/20 01/30/20 furosemide 40 mg PO DAILY 01/29/20 01/30/20 isosorbide mononitrate 60 mg PO BID 01/29/20 01/30/20 lisinopril 10 mg PO HS 01/29/20 01/31/20 pantoprazole 40 mg PO DAILY 01/29/20 01/30/20 tramadol 50 mg PO BID PRN 01/29/20 01/30/20 tizanidine 4 mg PO BID PRN 01/30/20 01/30/20 potassium chloride 20 meq PO QAM AND QPM 01/31/20 01/31/20 Allergies Allergy/AdvReac Type Severity Reaction Status Date / Time No Known Allergies Allergy Verified 11/12/20 04:21 Review of Systems Review of Systems: A 10 system review of systems was completed on the patient and is negative except for what is stated in the HPI. Nursing and ancillary documentation was reviewed. [facility] Past Medical History Medical History Arthritis Atrial fibrillation Chronic anticoagulation Coronary artery disease Hyperlipidemia Hypertension Perforated peptic ulcer Surgical History Surgical History H/O: hysterectomy vaginal partial hysterectomy History of abdominal surgery Exploratory laparotomy for perforated peptic ulcer repair in 2001. History of coronary artery bypass graft History of lumpectomy History of neck surgery History of right inguinal hernia repair Family History Family History Father Colon cancer Mother Cerebrovascular accident Hypertension Social History Social History Social History: Patient lives at home alone but has her boyfriend comes in to check on her frequently. She wishes her son, Shant to be her surrogate MDM. She wishes to be a Full Code. Her PCP is Dr. Finley from [facility] Smoking status: Never smoker Alcohol intake: never Substance use: never Gender identity (if verbalized by the patient): Female Spiritual care concerns: No Exam Narrative: GENERAL: Well-appearing, well-nourished, and in no acute distress. HEAD: Normocephalic, atraumatic. EYES: PERRLA and EOMI. ENT: Nares clear, no rhinorrhea or epistaxis. Mucous membranes moist. NECK: Supple. CHEST: Clear to auscultation. No respiratory distress. HEART: Regular rate and rhythm. No murmur heard. Normal peripheral pulses. ABDOMEN: Soft, nontender, nondistended, normal active bowel sounds. EXTREMITIES: Normal range of motion. No edema. SKIN: Warm, dry, no rash. NEURO: No focal deficits. Alert and oriented x3. PSYCH: Normal mood and affect. Course Course Emergency Course: The patient's troponin today was lower than when she was in the emergency department the other morning. The case was discussed with the hospitalist due to the patient's tropo
[2020-11-13 21:30] VITALS: BP 166/79; PULSE 75; RESP 16; O2SAT 96
== END 2020-11-13 21:31 | disposition home or self-care (01) ==
PROVIDERS: Emergency Medicine; Emergency Provider Emergency Medicine; PCP Internal Medicine
DX: U07.1 COVID-19 (principal); J12.82 Pneumonia due to coronavirus disease 2019; M19.90 Unspecified osteoarthritis, unspecified site; I48.91 Unspecified atrial fibrillation; Z79.82 Long term (current) use of aspirin; I25.10 Atherosclerotic heart disease of native coronary artery without angina pectoris; E78.5 Hyperlipidemia, unspecified; I10 Essential (primary) hypertension; Z79.01 Long term (current) use of anticoagulants; R06.02 Shortness of breath
CPT/HCPCS: 36415; 71046; 80048; 83605; 83880; 84484; 85025; 93005; 96360; 99284; A9270; J7030

== ENCOUNTER → 2022-08-05 09:52 | Outpatient (CLI) | payer MEDICARE, OTHER, SELFPAY ==
--- NOTE | ~2022-08-05 | XR_ITS ---
EXAMINATION: XR hip RT 2V w AP pelvis INDICATION: Right hip pain TECHNIQUE: AP view the pelvis and two views of the right hip are obtained. COMPARISON: None available FINDINGS: Bone alignment is normal. There is no fracture. There is mild osteoarthritis of the hips. P hleboliths are noted in the pelvis. There is calcified atherosclerosis. IMPRESSION: 1. No acute osseous abnormality. Reviewed, dictated and finalized at location A.
== END ==
PROVIDERS: PCP Nurse Practitioner Family; Visit Provider Nurse Practitioner Family
DX: M25.551 Pain in right hip (principal)
CPT/HCPCS: 73502

== ENCOUNTER 2022-10-22 10:26 | Outpatient (CLI) | payer MEDICARE, MEDICAID, SELFPAY ==
[2022-10-22 10:41] LABS: Basophils Percent Auto 0.3 % (0.2-1.2); Eosinophils Absolute Auto 0.2 K/mm3 (0-0.3); Eosinophils Percent Auto 1.6 % (0-4.4); Hematocrit 38.5 % (37.0-47.0); Hemoglobin 11.7 g/dL (12.0-15.0); Immature Granulocyte Absolute 0.03 K/mm3 (0.00-0.031); Immature Granulocyte Percent A 0.3 % (0-0.5); Lymphocytes Percent Auto 26.9 % (18.3-44.2); Mean Corpuscular HGB Conc 30.4 g/dl (32-36); Mean Corpuscular Hemoglobin 25.5 pg (26-34); Mean Corpuscular Volume 83.9 fl (80-100); Monocytes Absolute Auto 1.1 K/mm3 (0.1-0.6); Monocytes Percent Auto 11.4 % (2.6-8.5); Neutrophils Absolute Auto 5.5 K/mm3 (1.3-6.7); Neutrophils Percent Auto 59.5 % (45.5-73.1); Platelet Count Result 309 k/mm3 (150-375); Red Blood Count 4.59 M/mm3 (4.2-5.4); Red Cell Distribution Width 14.8 % (11.5-14.5); White Blood Count 9.3 K/mm3 (4.5-10.0)
[2022-10-22 14:33] LABS: Iron 74 ug/dL (37-170)
[2022-10-22 14:36] LABS: Alanine Aminotransferase 20 U/L (6-35); Alkaline Phosphatase 62 U/L (38-126); Anion Gap 7 mmol/L (8-16); Aspartate Amino Transferase 26 U/L (14-36); Bilirubin,Total 0.5 mg/dL (0.2-1.3); Blood Urea Nitrogen 15 mg/dL (7-17); Calcium 9.3 mg/dL (8.4-10.2); Carbon Dioxide 32 mmol/L (22-30); Chloride 98 mmol/L (98-107); Estimated Glomerular Filt Rate > 60; Glucose 94 mg/dL (65-110); Potassium 4.5 mmol/L (3.4-5.0); Sodium 137 mmol/L (137-145)
[2022-10-22 14:53] LABS: Percent Iron Saturation 18 % (20-50)
[2022-10-22 15:40] LABS: Folic Acid 6.1 ng/mL (2.76->20)
[2022-10-25 16:31] LABS: Methylmalonic Acid 107 nmol/L (87-318)
== END 2022-10-22 10:27 | disposition home or self-care (01) ==
LOC: ANHLAB 10:29
PROVIDERS: PCP Nurse Practitioner Family; Visit Provider Internal Medicine Hematology & Oncology
DX: D59.9 Acquired hemolytic anemia, unspecified (principal); D64.9 Anemia, unspecified
CPT/HCPCS: 36415; 80053; 82607; 82728; 82746; 83540; 83550; 83921; 85025

== ENCOUNTER 2024-01-07 11:38 | Outpatient (CLI) | payer MEDICARE, MEDICAID, SELFPAY ==
--- NOTE | ~2024-01-07 | XR_ITS ---
EXAMINATION: XR chest 2V DATE: 01/07/2024 11:52 INDICATION: Shortness of breath and chest tightness TECHNIQUE: PA and lateral views of the chest were obtained. COMPARISON: Chest radiograph dated 11/13/2020 FINDINGS: Mild opacities at the anterior left lung base at the apex of the left hemidiaphragm. No pulmonary simon ma, pleural effusion or pneumothorax. Moderate cardiomegaly. Median sternotomy wires and mediastinal surgical clips are seen, likely from prior coronary artery bypass grafting. A couple bone graft cages for anterior spinal fusion at a couple levels at the lower cervical spine. IMPRESSION: 1. Focal opacities at the left lung base which could represent atelectasis or pneumonia. 2. Moderate cardiomegaly. Reviewed, dictated and finalized at location B. NING RN IMPRESSION: 1. Focal opacities at the left lung base which could represent atelectasis or p neumonia. 2. Moderate cardiomegaly.
== END 2024-01-07 11:39 | disposition home or self-care (01) ==
PROVIDERS: PCP Internal Medicine; Visit Provider Internal Medicine
DX: R91.8 Other nonspecific abnormal finding of lung field (principal); I51.7 Cardiomegaly
CPT/HCPCS: 71046

== ENCOUNTER 2024-07-08 06:40 | Outpatient (CLI) | payer MEDICARE, MEDICAID, SELFPAY ==
--- NOTE | ~2024-07-08 | XR_ITS ---
XR chest 2V Ordering provider: Kelly Aranda MD History: 74 years Female with . SOB . Comparison: January 07, 2024 FINDINGS: MEDIASTINUM: The cardiac silhouette is grossly enlarged. Congestive goldie. LUNGS: No infiltrates, effusions or pneumothorax. Bilateral interstitial thickening suggestive of pul monary edema. OTHER: No free air under the diaphragm. IMPRESSION: Cardiomegaly with cardiac decompensation and pulmonary edema. Superimposed pneumonitis cannot be excl uded. Reviewed, dictated and finalized at location A. IMPRESSION: Cardiomegaly with cardiac decompensation and pulmonary edema. Superimposed pneu monitis cannot be excluded.
== END 2024-07-08 06:41 | disposition home or self-care (01) ==
PROVIDERS: PCP Internal Medicine Cardiovascular Disease; Visit Provider Internal Medicine Cardiovascular Disease
DX: Z13.6 Encounter for screening for cardiovascular disorders (principal); I51.7 Cardiomegaly
CPT/HCPCS: 71046

== ENCOUNTER 2024-08-17 11:15 | Outpatient (CLI) | payer MEDICARE, MEDICAID, SELFPAY ==
--- NOTE | ~2024-08-17 | XR_ITS ---
Clinical Indication: CHF PA and lateral views of the chest: Comparison: 07/08/2024 Findings: The lungs are clear, without evidence of focal consolidation or pleural effusion. Cardiome diastinal silhouette is stable, status post median sternotomy. Bones and soft tissues are unremarkabl e. Impression: Clear lungs. Stable cardiomegaly, status post probable CABG. Reviewed, dictated and finalized at location M. Impression: Clear lungs. Stable cardiomegaly, status post probable CABG.
== END 2024-08-17 11:16 | disposition home or self-care (01) ==
LOC: MICIMG 11:17
PROVIDERS: PCP Internal Medicine; Visit Provider Internal Medicine Cardiovascular Disease
DX: I50.22 Chronic systolic (congestive) heart failure (principal); Z13.6 Encounter for screening for cardiovascular disorders; R00.1 Bradycardia, unspecified; I38 Endocarditis, valve unspecified; R42 Dizziness and giddiness; D64.9 Anemia, unspecified; E78.5 Hyperlipidemia, unspecified; Z95.1 Presence of aortocoronary bypass graft; I12.9 Hypertensive chronic kidney disease with stage 1 through stage 4 chronic kidney disease, or unspecified chronic kidney disease; I25.10 Atherosclerotic heart disease of native coronary artery without angina pectoris; Z20.822 Contact with and (suspected) exposure to COVID-19; K21.9 Gastro-esophageal reflux disease without esophagitis; N18.9 Chronic kidney disease, unspecified; I51.7 Cardiomegaly
CPT/HCPCS: 71046